=== PATIENT | female | born 1980 | race Caucasian/White ===

== ENCOUNTER 2022-12-22 09:53 | Day surgery (SDC) | payer OTHER ==
[2022-12-20 17:11] VITALS: BMI 26.0
[2022-12-20 17:30] LABS: Hematocrit 38.9 % (34.9-44.5); Hemoglobin 12.6 g/dL (12.0-15.5); Mean Corpuscular HGB CONC 32.4 g/dL (32.0-36.0); Mean Corpuscular Volume 89.6 fl (81.6-98.3); Mean Platelet Volume 9.7 fl (7.4-10.4); Platelet Count 374 10x3/uL (150-450); RBC Distribution Width 12.5 % (11.5-14.5); Red Blood Cell (RBC) Count 4.34 10x6/uL (3.90-5.03); White Blood Cell (WBC) Count 6.8 10x3/uL (3.5-10.5)
[2022-12-20 17:45] LABS: BHCG - Serum Negative (NEGATIVE); Pregs Control Background? CLEAR/WHITE (CLR/WHITE); Pregs Control Bar Appear? YES (CONTROL BAR)
[2022-12-22] MEDS ORDERED: Gabapentin 300 MG CAP ONE (10:12)
[2022-12-22] MEDS ORDERED: Famotidine/PF 20 mg/2ml Vial ONE (10:12)
[2022-12-22] MEDS ORDERED: CEFAZOLIN 2 GM VIAL ONE (10:55)
[2022-12-22] MEDS ORDERED: Bupivacaine PF 0.5% 30 ML VIAL ONE (12:08)
[2022-12-22] MEDS ORDERED: EPINEPHrine 1 MG/ML VIAL ONE (12:08)
[2022-12-22] MEDS ORDERED: Sevoflurane 250 ML INH ANEST BOTTLE ONE (12:09)
[2022-12-22] MEDS ORDERED: HYDROmorphone 0.5 MG/0.5 ML SYRINGE ONE (12:33)
[2022-12-22] MEDS ORDERED: Lidocaine 1% PF 5 ML VIAL ONE (12:34)
[2022-12-22] MEDS ORDERED: Esmolol 100 MG/10 ML VIAL ONE (12:34)
[2022-12-22] MEDS ORDERED: Midazolam HCl 2 mg/2 ml Vial ONE (12:34)
[2022-12-22] MEDS ORDERED: Rocuronium Bromide 10 MG/ML (10ML VIAL) ONE (12:34)
[2022-12-22] MEDS ORDERED: fentaNYL 50 mcg/mL 1 mL Vial ONE ×2 (12:34→14:51)
[2022-12-22] MEDS ORDERED: Dexamethasone 4 mg/ml Vial ONE (13:30)
[2022-12-22] MEDS ORDERED: Ondansetron PF 4 MG/2 ML Vial ONE (13:30)
[2022-12-22] MEDS ORDERED: Ketorolac Tromethamine 30 MG/ML VIAL ONE (13:31)
[2022-12-22] MEDS ORDERED: Ropivacaine 0.2% 550 ML 550 ML NERVE BLCK SCH (14:30)
[2022-12-22] MEDS ORDERED: Meperidine HCl/PF 25 MG/ML VIAL ONE (14:38)
[2022-12-22] MEDS ORDERED: HYDROcodone/Acetaminophen 5/325 mg Tablet ONE (15:23)
== END 2022-12-22 17:05 | disposition home or self-care (01) ==
LOC: CSHSDC 09:53
PROVIDERS: ATTEND Obstetrics & Gynecology
PROC: 0UT74ZZ Resection of Bilateral Fallopian Tubes, Percutaneous Endoscopic Approach (ICD-10-PCS; principal; 2022-12-22)
PROC: 0UT94ZL Resection of Uterus, Supracervical, Percutaneous Endoscopic Approach (ICD-10-PCS; principal; 2022-12-22)
PROC: 0UT24ZZ Resection of Bilateral Ovaries, Percutaneous Endoscopic Approach (ICD-10-PCS; principal; 2022-12-22)
DX: N80.03 Adenomyosis of the uterus (principal); N84.0 Polyp of corpus uteri; N73.6 Female pelvic peritoneal adhesions (postinfective); D64.9 Anemia, unspecified; N83.8 Other noninflammatory disorders of ovary, fallopian tube and broad ligament; Z88.2 Allergy status to sulfonamides; Z98.890 Other specified postprocedural states; Z79.899 Other long term (current) drug therapy
CPT/HCPCS: 36415; 84703; 85027; 86850; 86900; 86901; 88307; A4306; J0171; J1100; J1170; J1885; J2175; J2250; J2405; J2795; J3010; S0020; S0028

== ENCOUNTER 2025-02-14 10:20 | Outpatient (CLI) | payer BC | END 2025-02-14 10:21 | disposition home or self-care (01) | LOC: CSHMAMMO 10:20 | PROVIDERS: ATTEND Obstetrics & Gynecology | DX: Z12.31 Encounter for screening mammogram for malignant neoplasm of breast (principal) | CPT/HCPCS: 77063; 77067 ==